=== PATIENT | female | born 1960 | race Caucasian/White ===

== ENCOUNTER 2016-12-13 13:05 | Day surgery (SDC) | payer MEDICARE, BC ==
--- NOTE | 2016-12-14 09:10 | RADIOLOGY REPORT ---
EXAM: ABDOMEN, ONE VIEW HISTORY: KIDNEY STONES. FREQUENT URINARY TRACT INFECTIONS. TECHNIQUE: A single AP supine view of the abdomen was obtained. Comparison: Abdomen one view dated 11/18/12. FINDINGS: The bowel gas pattern is normal. No definite nephrolithiasis. Several round calcifications are again noted scattered within the pelvis, the pattern of which is not significantly changed. These are likely vascular. No new mass or organomegaly. Post cholecystectomy changes are again identified. There is redemonstration of a small focus of sclerosis projecting at the level of the inferior right iliac bone measuring 6 mm. This is stable suggesting a bone island. Surgical chain suture is again noted at the left mid abdominal level. IMPRESSION: 1. NO NEPHROLITHIASIS VISUALIZED. 2. SMALL ROUND CALCIFICATIONS SCATTERED WITHIN THE INFERIOR PELVIS, LIKELY VASCULAR IN ORIGIN. 3. BONE ISLAND WITHIN THE INFERIOR ASPECT OF THE RIGHT ILIAC BONE. 4. STATUS POST CHOLECYSTECTOMY. JOB NUMBER: [id number] MTDD
--- NOTE | 2016-12-14 14:25 | Operative Note ---
DATE OF SURGERY: 12/13/2016 PREOPERATIVE DIAGNOSIS: Recurrent urinary tract infection, urinary urgency and frequency. POSTOPERATIVE DIAGNOSIS: Recurrent urinary tract infection, urinary urgency and frequency. OPERATION: Cystoscopy. Anesthesia: Local. Indication: A 56-year-old female with symptoms of urinary tract infections that have been recurring episodically this past year but urine cultures that have been available for my review have been negative. So far, she has had a renal ultrasound that showed a 5 mm stone in the right upper pole of the kidney. She presents today for cystoscopy to complete her evaluation. PROCEDURE: Preop informed consent was obtained. Antibiotics were given. The patient was brought to the [facility] procedure room, placed supine with the genitalia prepped and draped sterilely in the frog-leg position. Flexible cystoscopy was performed. Urethra appears unremarkable. The bladder was inspected carefully. No bladder or mucosal abnormality was seen. The ureteral orifices had normal appearance and positioning. Each was effluxing clear urine. Pelvic examination revealed well supported bladder and vaginal structures and no evidence of prolapse. The scope was then removed. The procedure was terminated. PLAN: At this point we discussed removing her renal calculus and proceeding with lithotripsy. This could be the source of her recurring infection. However, there is still a possibility that this is related to menopause and if so, we would also need to consider possibility of antibiotic prophylaxis since she cannot tolerate estrogen replacement therapy. We will move ahead with lithotripsy first and follow her symptoms afterwards. CC: MARGIE OCAMPO D.O. ISHAAN
== END 2016-12-13 15:48 | disposition home or self-care (01) ==
LOC: HOP 13:05
PROVIDERS: ATTEND Urology
DX: N39.0 Urinary tract infection, site not specified (principal)
CPT/HCPCS: 74000

== ENCOUNTER 2017-04-21 14:31 | Emergency (ER) | payer MEDICARE, BC ==
--- NOTE | 2017-04-21 14:43 | Emergency Department Record ---
History of Present Illness - General Chief Complaint: Dizziness Stated Complaint: DIZZY AND COLD FEELING IN LEFT ARM Time Seen by Provider: 04/21/17 14:41 Source: Patient Mode of Arrival: Ambulatory Limitations: No limitations - History of Present Illness Initial Comments: The patient is here due to having the sudden onset of dizziness while driving about 20 minutes ago. She states the feeling was like she was off balance and she felt funny in the head and felt like the car was vearing to the R. She was able to drive here with no difficulty. The patient then felt some vague mild L arm pain and then it felt cold. Her symptoms have now pretty much resolved and she not longer is having any pain, cold arm feeling, off balance or any spinning sensation. She does state she feels a little foggy in the head but denies any nausea, blurred vision, weakness, or numbness. The patient is having intermittent double vision but that is chronic for her. MD Complaint: Dizziness Onset/Timin -: Minutes(s) Timing: Sudden onset Description: Lightheadedness, Nausea, Off-balance Associated Symptoms: Denies other symptoms - Mary Coma Scale Eye Response: (4) Open spontaneously Motor Response: (6) Obeys commands Verbal Response: (5) Oriented [place] Total: 15 - Related Data Previous Rx's Medication Instructions Recorded Meclizine HCl [Antivert] 25 mg PO BID #14 tab 04/21/17 Allergies Allergy/AdvReac Type Severity Reaction Status Date / Time NSAIDS (Non-Steroidal AdvReac NAUSEA AND Verified 04/21/17 14:44 Anti-Inflamma VOMITING Travel Screening - Travel/Exposure Within Last 30 Days Have you traveled within the last 30 days?: No - Travel/Exposure Within Last Year Have you traveled outside the [place] in the last year?: No - Additonal Travel Details Have you been exposed to anyone with a communicable illness?: No - Travel Symptoms Symptom Screening: None Review of Systems Constitutional: Denies: Chills, Fever Eyes: Denies: Eye discharge ENT: Denies: Congestion Respiratory: Denies: Cough, Dyspnea Cardiovascular: Denies: Arrhythmia, Chest pain, Dyspnea on exertion Endocrine: Denies: Fatigue Past Medical History - SOCIAL HISTORY Smoking Status: Never smoker Alcohol Use: Rare Drug Use: None - RESPIRATORY Hx Respiratory Disorders: No Hx Bronchitis: Yes - CARDIOVASCULAR Hx Cardio Disorders: Yes Hx Palpitations: Yes - NEURO Hx Neuro Disorders: Yes Hx Headaches: Yes Hx of Migraines: Yes (occass) Comment:: recent hopitalization for diplopia seeing neuro opthamalogist - GI Hx GI Disorders: No Hx Nausea/Vomiting: Yes (occass since gastric bypass) Hx Wt Loss/Wt Gain: Yes (8 lbs due to meds gain) Comment:: polyps - Hx Genitourinary Disorders: No Hx UTI: Yes (chronic) Comment:: post hyst - ENDOCRINE Hx Endocrine Disorders: No Hx Thyroid Disease: Yes (nodules non malignant) - MUSCULOSKELETAL Hx Musculoskeletal Disorders: No Hx Arthritis: Yes (osteoarthritis) Hx Fibromyalgia: Yes - PSYCH Hx Psych Problems: No Hx Anxiety: Yes Hx Depression: Yes Comment:: Bipolar - HEMATOLOGY/ONCOLOGY Hx Hematology/Oncology Disorders: Yes Hx Anemia: Yes Family Medical History Any Significant Family History?: No Hx Cancer: Mother Physical Exam - General General Appearance: Alert, Oriented x3, Cooperative, No acute distress - Head Head exam: Atraumatic, Normocephalic, Normal inspection - Eye Eye exam: Normal appearance, PERRL, EOMI - ENT ENT exam: Normal exam, Mucous membranes moist, Normal external ear exam, Normal orophraynx, TM's normal bilaterally Throat exam: Normal inspection. negative: Tonsillar erythema, Tonsillar exudate - Neck Neck exam: Normal inspection, Full ROM, Other (Neg carotic bruits.). negative: Lymphadenopathy, Meningismus, Tenderness - Respiratory Respiratory exam: Normal lung sounds bilaterally. negative: Respiratory distress - Cardiovascular Cardiovascular Exam: Regular rate, Normal rhythm, Normal heart sounds - GI/Abdominal GI/Abdominal exam: Soft, Normal bowel sounds. negative: Tenderness - Extremities Extremities exam: Normal inspection, Full ROM, Normal capillary refill. negative: Tenderness - Back Back exam: Reports: Normal inspection - Neurological Neurological exam: Alert, Normal gait, Oriented X3, Other (Neg Drift and [place]omberg exams. Her finger to nose testing is normal bilaterally with NO cerebellar signs or abnormalities.). negative: Abnormal gait, Altered, Motor sensory deficit Course Vital Signs 04/21/17 14:35 Temperature 99.0 F Pulse Rate 92 H Respiratory 20 Rate Blood Pressure 142/82 Pulse Ox 97 - Reevaluation(s) Reevaluation #1: The patient is doing much better at this time. She is resting comfortably and is much less dizzy. 04/21/17 15:31 Reevaluation #2: The patient is doing much better at this time. She is presently texting on her phone and feels MUCH better. Her dizziness has basically resolved and she denies any pain or discomfort. She is able to get up and walk, while turning in the room with no dizziness or ataxia. I explained to her that her tests and exam are all WNL's and really do not point to any cause for the dizziness. She is to see her PCP next week and return to the ER if not better or if worse. 04/21/17 16:10 Medical Decision Making - Data Complexity MDM Data: Labs Ordered and/or Reviewed, X-Ray Ordered and/or Reviewed, EKG Ordered and/or Reviewed - Lab Data Result diagrams: 04/21/17 15:05 04/21/17 15:05 - EKG Data -: EKG Interpreted by Me EKG: No Acute Changes - Radiology Data Radiology results: Report reviewed (Head CT: neg.) Disposition Disposition: Discharge Clinical Impression: Dizziness Disposition: Home, Self-Care Condition: (2) Stable Instructions: Dizziness (ED) Additional Instructions: Please take your regular medicines and take the Antivert as directed. Please see your PCP next week for recheck and return to the ER for any return of the dizziness, or any arm or leg numbness, tingling, weakness or any balance issues. Prescriptions: Meclizine HCl [Antivert] 25 mg PO BID #14 tab Forms: Patient Portal Access Time of Disposition: 16:14 Quality - Quality Measures Quality Measures: N/A - Blood Pressure Screening View Details: Yes Does Patient Have Any of the Following: No Blood Pressure Classification: Pre-Hypertensive BP Reading Systolic Measurement: 130 Diastolic Measurement: 86 Screening for High Blood Pressure: < Pre-Hypertensive BP, F/U Documented > [ G8950] Pre-Hypertensive Follow-up Interventions: Referral to alternative/primary care provider.
[2017-04-21] MEDS ORDERED: ACETAMINOPHEN 325 MG TAB PO ONE (14:52)
[2017-04-21] MEDS ORDERED: MECLIZINE 25 MG TABLET PO ONE (14:52)
[2017-04-21 15:17] LABS: BASO % 0.4 % (0-6); EOS % 5.5 % (0-6); GRAN % 68.8 % (47-80); HEMATOCRIT 38.9 % (35.0-47.0); HEMOGLOBIN 11.8 gm/dl (11.6-16.0); LYMPH % 19.5 % (16-45); MEAN CELL VOLUME 90.3 fl (81-97); MEAN CORPUSCULAR HEMOGLOBIN 27.4 pg (27-33); MEAN CORPUSCULAR HGB CONC 30.3 g/dl (32-36); MEAN PLATELET VOLUME 10.3 fl (7.4-10.4); MONO % 5.8 % (0-9); PLATELET COUNT 285 K/uL (130-400); RED BLOOD COUNT 4.31 M/uL (3.80-5.40); RED CELL DISTRIBUTION WIDTH 13.5 % (11.5-14.5); WHITE BLOOD COUNT W/O DIFF 8.1 K/uL (4.2-12.2)
[2017-04-21 15:24] LABS: BLOOD UREA NITROGEN 13 mg/dL (6-20); CREATININE 0.8 mg/dL (0.5-0.9); EST GLOMERULAR FILTRATION RATE > 60 mL/min
[2017-04-21 15:25] LABS: TOTAL PROTEIN 6.7 g/dL (6.6-8.7)
[2017-04-21 15:27] LABS: GLUCOSE,RANDOM 151 mg/dL (74-109)
[2017-04-21 15:29] LABS: ALB/GLOB RATIO 1.6 (1.1-1.8); ALBUMIN 4.1 g/dL (4.0-5.0); ALT/SGPT 71 U/L (<33); AST/SGOT 28 U/L (10.0-35.0)
[2017-04-21 15:30] LABS: ALKALINE PHOSPHATASE 97 U/L (35-104)
[2017-04-21 15:40] LABS: THYROID STIMULATING HORMONE 1.22 uIU/mL (0.270-4.20)
--- NOTE | 2017-04-22 10:55 | CT SCAN REPORT ---
EXAM: CT SCAN HEAD WO CONTRAST HISTORY: ACUTE HEADACHE, DIZZINESS. NOT OTHERWISE SPECIFIED. COMPARISON: Head CT 03/28/16. HAND DOMINANCE: Right. TECHNIQUE: Contiguous axial images from the cerebral convexities through the foramen magnum were obtained without IV contrast. FINDINGS: Brain volume is normal. No acute intracranial hemorrhage, mass effect , or midline shift. No CT evidence of acute infarct. Ventricles, basal cisterns , and sulci are within normal limits. Osseous structures, soft tissues, and paranasal sinuses are unremarkable. IMPRESSION: NORMAL HEAD CT. NO CHANGE. JOB NUMBER: [id number] MTDD
== END 2017-04-21 16:26 | disposition home or self-care (01) ==
LOC: ER 14:31
DX: R42 Dizziness and giddiness (principal); R11.0 Nausea; M79.602 Pain in left arm; R51 Headache; M54.2 Cervicalgia
CPT/HCPCS: 70450; 80053; 84443; 85025; 93005; 93010; 99284

== ENCOUNTER 2018-03-05 12:00 | Observation (INO) | payer BC, MEDICARE ==
[2018-03-05] MEDS ORDERED: ASPIRIN 81 MG CHEWABLE TABLET PO ONE (12:11)
--- NOTE | 2018-03-05 12:17 | Emergency Department Record ---
History of Present Illness - General Chief Complaint: Shortness of breath Stated Complaint: [place]UC[place]LE Time Seen by Provider: 03/05/18 12:02 Source: Patient Mode of Arrival: Ambulatory Limitations: No limitations - History of Present Illness Initial Comments: 57 yo female presents with fatigue, shortness of breath and a burning feeling with breathing. She has had the symptoms for 2 weeks. She notices them with breathing and activity. It hurts to breath at times and with activity in her home. No cough. No fever. She is a non smoker. She does think her mother has a history of heart attack. No history of heart or lung disease. She has bipolar on [place] doing well. She has some leg edema but states that is chronic and unchanged. She feels the symptoms almost all the time over the two weeks. There have been brief periods without. She is more fatigued with normal house activity. MD Complaint: Chest pain (rivera), Shortness of breath Onset/Timin -: Week(s) (14) Severity: Moderate Quality: Burning Consistency: Constant Improves With: Nothing Worsens With: Exertion Known History Of: Other Associated Symptoms: Denies other symptoms Treatments Prior to Arrival: None - Related Data Allergies Allergy/AdvReac Type Severity Reaction Status Date / Time NSAIDS (Non-Steroidal AdvReac NAUSEA AND Verified 03/05/18 12:08 Anti-Inflamma VOMITING Travel Screening - Travel/Exposure Within Last 30 Days Have you traveled within the last 30 days?: No Review of Systems Constitutional: Reports: Malaise, Weakness. Denies: Chills, Fever Eyes: Denies: Eye discharge ENT: Denies: Congestion, Throat pain Cardiovascular: Reports: Chest pain, Dyspnea on exertion, Edema. Denies: Arrhythmia, Palpitations, Syncope Endocrine: Denies: Fatigue Gastrointestinal: Denies: Abdominal pain, Constipation, Diarrhea, Nausea Genitourinary: Denies: Dysuria, Urgency Musculoskeletal: Denies: Arthralgia, Back pain, Myalgia Skin: Denies: Bruising, Change in color, Rash Neurological: Denies: Headache Psychiatric: Denies: Anxiety Hematological/Lymphatic: Denies: Easy bleeding, Easy bruising Past Medical History - SOCIAL HISTORY Smoking Status: Never smoker Alcohol Use: None Drug Use: None - RESPIRATORY Hx Respiratory Disorders: No Hx Bronchitis: Yes - CARDIOVASCULAR Hx Cardio Disorders: Yes Hx Palpitations: Yes - NEURO Hx Neuro Disorders: Yes Hx Headaches: Yes Hx of Migraines: Yes (occass) Comment:: recent hopitalization for diplopia seeing neuro opthamalogist - GI Hx GI Disorders: No Hx Nausea/Vomiting: Yes (occass since gastric bypass) Hx Wt Loss/Wt Gain: Yes (8 lbs due to meds gain) Comment:: polyps - Hx Genitourinary Disorders: No Hx UTI: Yes (chronic) Comment:: post hyst - ENDOCRINE Hx Endocrine Disorders: No Hx Thyroid Disease: Yes (nodules non malignant) - MUSCULOSKELETAL Hx Musculoskeletal Disorders: No Hx Arthritis: Yes (osteoarthritis) Hx Fibromyalgia: Yes - PSYCH Hx Psych Problems: No Hx Anxiety: Yes Hx Depression: Yes Comment:: Bipolar - HEMATOLOGY/ONCOLOGY Hx Hematology/Oncology Disorders: Yes Hx Anemia: Yes Family Medical History Any Significant Family History?: Yes Hx Cancer: Mother Physical Exam - General General Appearance: Alert, Oriented x3, Cooperative, No acute distress Limitations: No limitations - Head Head exam: Atraumatic, Normal inspection - Eye Eye exam: Normal appearance. negative: Conjunctival injection, Scleral icterus - ENT ENT exam: Normal exam Ear exam: Normal external inspection Nasal Exam: Normal inspection Mouth exam: Normal external inspection - Neck Neck exam: Normal inspection, Full ROM. negative: Tenderness - Respiratory Respiratory exam: Normal lung sounds bilaterally. negative: Accessory muscle use, Chest wall tenderness, Decreased breath sounds, Respiratory distress, Rhonchi, Stridor, Wheezes - Cardiovascular Cardiovascular Exam: Regular rate, Normal rhythm, Normal heart sounds - GI/Abdominal GI/Abdominal exam: Soft. negative: Tenderness - Rectal Rectal exam: Deferred - exam: Deferred - Extremities Extremities exam: Normal inspection, Pedal edema (+1 bilateral). negative: Tenderness - Back Back exam: Denies: Tenderness - Neurological Neurological exam: Alert, Oriented X3 - Psychiatric Psychiatric exam: Normal affect, Normal mood - Skin Skin exam: Dry, Intact, Normal color, Warm Course Vital Signs 03/05/18 12:03 Temperature 97.8 F Pulse Rate 120 H Respiratory 100 H Rate Blood Pressure 140/73 Pulse Ox 20 L - Reevaluation(s) Reevaluation #1: EKG #1: 1208 Rate: 111 Rhythm: sinus tach [place]: normal Intervals: normal ST segments: ST elevation anterior leads, no depression Prior: 04/21/17 reviewed. more pronounced changes in V3-V5 [place] [facility] [place] airways operations specialist cardiology given the EKG changes. 03/05/18 12:17 [facility] contacted and reviewing EKG's 03/05/18 12:26 Dr Candelario reviewed the EKG's. He does not recommend label rewinder activation at this time. Cardiology would like to be called back after Troponin is resulted. 03/05/18 12:33 03/05/18 12:36 The CBC and BMP were reviewed. No acute changes. 03/05/18 13:00 EKG #2: 1240 Rate: 97 Rhythm: sinus [place]: normal Intervals: normal ST segments: NS ST elevation, LVH, no depression Prior: minimal interval changes Repeat ECG reviewed with Dr Candelario Given the length of symptoms and elevated D-dimer, chest CTA and ECHO ordered. The patient is very comfortable. HR much improved to 89. 03/05/18 13:14 Normal ESR and CRP 03/05/18 13:50 The CXR and the CTA of the chest are negative. 03/05/18 14:[address] Candelario. The plan is for review of the ECHO and repeat troponin. If negative will admit for further serial troponins. If positive will transfer. Next troponin around 4 pm 03/05/18 14:57 The ECHO was normal without wall motion abnormality or effusion. 03/05/18 15:04 ECHO: Normal LV, EF 55-60%, grade II dyastolic dysfunction, trace tricuspid regurg, normal pulmonary pressures. 03/05/18 16:16 The repeat Troponin is negative MCG PA completed the consult The case will be discussed with Dr Lo for admission and likely stress test tomorrow. Medical Decision Making - Lab Data Result diagrams: 03/05/18 12:15 03/05/18 12:15 Disposition Disposition: Discharge Clinical Impression: Chest pain Qualifiers: Chest pain type: unspecified Qualified Code(s): R07.9 - Chest pain, unspecified Disposition: Still a Patient at [facility] Decision to Admit: Admit from ER Decision to Admit Date: 03/05/18 Condition: (2) Stable Time of Disposition: 14:57 Quality - Quality Measures Quality Measures: N/A - Blood Pressure Screening Does Patient Have Any of the Following: No Blood Pressure Classification: Normal BP Reading Systolic Measurement: 106 Diastolic Measurement: 54 Screening for High Blood Pressure: < Normal BP, F/U Not Required > [G8783] Pre-Hypertensive Follow-up Interventions: Referral to alternative/primary care provider.
[2018-03-05 12:23] LABS: BASO % 0.3 % (0-6); EOS % 3.6 % (0-6); GRAN % 69.3 % (47-80); HEMATOCRIT 36.4 % (35.0-47.0); HEMOGLOBIN 11.2 gm/dl (11.6-16.0); LYMPH % 20.7 % (16-45); MEAN CELL VOLUME 91.2 fl (81-97); MEAN CORPUSCULAR HGB CONC 30.8 g/dl (32-36); MEAN PLATELET VOLUME 10.1 fl (7.4-10.4); MONO % 6.1 % (0-9); PLATELET COUNT 284 K/uL (130-400); RED BLOOD COUNT 3.99 M/uL (3.80-5.40)
[2018-03-05 12:32] LABS: PROTHROMBIN TIME (PATIENT) 9.8 SECONDS (9.5-12.1)
[2018-03-05 12:35] LABS: BLOOD UREA NITROGEN 14 mg/dL (6-20); CREATININE 0.6 mg/dL (0.5-0.9); EST GLOMERULAR FILTRATION RATE > 60 mL/min
[2018-03-05 12:36] LABS: TOTAL PROTEIN 6.1 g/dL (6.6-8.7)
[2018-03-05 12:38] LABS: GLUCOSE,RANDOM 238 mg/dL (74-109)
[2018-03-05 12:40] LABS: ALB/GLOB RATIO 1.4 (1.1-1.8); ALBUMIN 3.6 g/dL (4.0-5.0); ALKALINE PHOSPHATASE 83 U/L (35-104); ALT/SGPT 34 U/L (<33); AST/SGOT 22 U/L (10.0-35.0)
[2018-03-05] MEDS ORDERED: ACETAMINOPHEN 325 MG TAB PO PRN (16:58)
[2018-03-05] MEDS ORDERED: 0.9 % SODIUM CHLORIDE 1000ML 1,000 ML IV PRN (16:58)
--- NOTE | 2018-03-05 20:02 | Cardiology Consult ---
DATE OF CONSULTATION: 03/05/2018 HISTORY OF PRESENT ILLNESS: Ms. Harmon is a very pleasant 57-year-old female with past medical history of bipolar disorder, stage 2 diastolic dysfunction, peripheral edema, migraines, restless leg syndrome, and fibromyalgia. She denies prior history of coronary artery disease, hypertension, hyperlipidemia, CVA/TIA, diabetes mellitus, PE/DVT, and tobacco use. She drinks alcohol only on occasion. She has a family history of coronary artery disease, as her mother and father both had heart attacks in their 60's. She reports a normal stress test about 15 years ago prior to a surgery. No previous echocardiogram. She has never seen a Casualty Claim Adjuster. She presented to [facility] with complaints of chest pain. She first noticed the pain two weeks ago. It was intermittent and aggravated with physical activity. She describes it as a mid sternal pressure with associated shortness of breath. The pain has become more constant, which is why she decided to go to the E.D. Her vital signs have been stable. Her EKG demonstrated new ST elevations, likely J- point elevations, in leads V3 through V5. These were new changes when compared to her prior EKG. The E.D. physician reviewed these findings with Dr. Alvarenga, who did not feel it was acute coronary syndrome. Troponin has been negative x1 and the second is pending. CTA of the chest was negative for PE. Echocardiogram demonstrated preserved LV systolic function with an ejection fraction of 55 to 60%, no wall motion abnormalities, grade 2 diastolic dysfunction, trace TR, and normal pulmonary pressures. She continues to have mild mid sternal chest pressure but is resting comfortably in bed. ALLERGIES: NSAIDS FOR NAUSEA AND VOMITING. MEDICATIONS: Lamotrigine 150 mg b.i.d. Clonazepam 2 mg daily. Hydroxychloroquine Sulfate 200 mg b.i.d. Cope Carbonate 450 mg daily. Hydroxyzine HCL 50 mg b.i.d. Zofran 8 mg t.i.d. Nitrofurantoin 100 mg every other day. Vraylar 3 mg daily. Ipratropium [place] 30 mL spray t.i.d. FAMILY HISTORY: Father MO, mother MO. SOCIAL HISTORY: Denies tobacco use, occasional alcohol use, no routine exercise program. PAST MEDICAL HISTORY: Bipolar disorder, fibromyalgia, restless leg syndrome, peripheral edema, grade 2 diastolic dysfunction, and migraines. REVIEW OF SYSTEMS: CONSTITUTIONAL: No fevers, chills, sweats, lightheadedness, dizziness, syncope. EYE: No recent visual problems. ENMT: No ear pain, nasal congestion, sore throat. RESPIRATORY: Reports shortness of breath. No cough. CARDIOVASCULAR: Reports chest pain. No palpitations, PND, orthopnea, syncope. PERIPHERAL VASCULAR: Chronic peripheral edema, no claudication. GASTROINTESTINAL: No nausea, vomiting, diarrhea. MUSCULOSKELETAL: No back pain, neck pain, joint pain, muscle pain, decreased range of motion. INTEGUMENTARY: No rash, pruritus, abrasions. NEUROLOGIC: Denies numbness, tingling, paresthesias. PSYCHIATRIC: No anxiety, depression. Reports bipolar disorder. PHYSICAL EXAM: VITAL SIGNS: Blood pressure 140/73 mmHg. Temperature 97.8 degrees Fahrenheit. Respiratory rate 20 per minute. PO2 100% on 2 liters supplemental oxygen via nasal canula. Pulse 94 beats per minute. GENERAL: Alert and oriented, well nourished, in no acute distress. HEAD: Normocephalic, atraumatic. ENT: EOMI, PERRL. No scleral icterus, erythema, throat free from erythema and lesions. NECK: Supple, nontender, no carotid bruits, no JVD. RESPIRATORY: Clear to auscultation, nonlabored respiration, no wheezing, rhonchi , rales. CARDIAC: Regular rate and rhythm. No murmurs, rubs, gallops. PERIPHERAL VASCULAR: 1+ peripheral edema bilaterally. No cyanosis, clubbing. Peripheral pulses 2+ and symmetric. ABDOMEN: Soft, nontender, nondistended, normal bowel sounds. SKIN: Skin is warm, dry, and pink. No rashes or lesions. MUSCULOSKELETAL: Normal range of motion of all four extremities. Normal gait. NEUROLOGIC: Awake, alert, and oriented x3. PSYCHIATRIC: Cooperative, appropriate mood and affect. LABS: CBC: White blood cell count 6.0. Hemoglobin is 11.2. Hematocrit 36.4. Platelets 284. Basic metabolic panel: Sodium 143. Potassium 3.7. Chloride 105. CO2 24. BUN 14. Creatinine 0.6. Glucose 238. D-dimer 0.59. proBNP 109.8. CRP 0.30. Troponin negative x1. IMAGING: EKG: Nonspecific ST elevation, not acute coronary syndrome. Chest X-ray: No acute cardiopulmonary process. CTA for PE: Negative. Echocardiogram: Ejection fraction 55 to 60%, no wall motion abnormalities, grade 2 diastolic dysfunction, trace TR, and normal pulmonary pressures. ASSESSMENT AND PLAN: 1. ATYPICAL CHEST PAIN. 2. ABNORMAL EKG. 3. PATIENT IS A 57-YEAR-OLD FEMALE WITH RISK FACTORS FOR CAD INCLUDING ONLY FAMILY HISTORY. SHE DENIES HYPERTENSION, HYPERLIPIDEMIA, DIABETES, AND TOBACCO USE. SHE PRESENTED TO [facility] WITH COMPLAINTS OF CONSTANT MID STERNAL CHEST PRESSURE. THE PAIN STARTED TWO WEEKS AGO AND WAS INTERMITTENT AT FIRST. IT IS EXACERBATED WITH PHYSICAL ACTIVITY. NO ALLEVIATING FACTORS. EKG DEMONSTRATED NEW J-POINT ELEVATIONS IN LEADS V3 THROUGH V5 WHEN COMPARED TO PRIOR EKG. THIS WAS REVIEWED WITH DR. ALVARENGA AND DID APPEAR TO BE ACUTE CORONARY SYNDROME. ECHOCARDIOGRAM DEMONSTRATED PRESERVED LV SYSTOLIC FUNCTION WITH AN EJECTION FRACTION OF 55 TO 60%, GRADE 2 DIASTOLIC DYSFUNCTION, TRACE TR, AND NORMAL PULMONARY PRESSURES. CTA FOR PE WAS NEGATIVE. SHE IS RESTING COMFORTABLY IN BED AT THE MOMENT COMPLAINING OF MINIMAL CHEST PRESSURE. VITAL SIGNS HAVE BEEN STABLE. IF SECOND TROPONIN COMES BACK NEGATIVE, WILL PLAN TO HAVE MEDICINE ADMIT THE PATIENT AND WILL PERFORM A STRESS CARDIOLITE TOMORROW, ON 03/06/2018. IF SECOND TROPONIN COMES BACK POSITIVE, WILL PLAN TO TRANSFER TO [facility] [place] FOR FURTHER CARDIAC EVALUATION. [facility]BER: [id number] [facility]
[2018-03-05] MEDS ORDERED: CLONAZEPAM 1MG TABLET PO SCH (22:00)
[2018-03-05] MEDS ORDERED: HYDROXYCHLOROQUINE SULFATE 200 MG TABLET PO SCH (22:00)
[2018-03-05] MEDS ORDERED: IPRATROPIUM BROMIDE NS SCH (22:00)
[2018-03-05] MEDS ORDERED: HYDROXYZINE PAMOATE 25 MG CAPSULE PO SCH (22:00)
[2018-03-05] MEDS ORDERED: LAMOTRIGINE 100 MG TABLET PO SCH (22:00)
[2018-03-05] MEDS: CARIPRAZINE HCL 3 MG PO SCH (23:04)
[2018-03-05] MEDS: LITHIUM CARBONATE 300 MG PO SCH (23:16)
[2018-03-05] MEDS: LITHOBID PO SCH (23:16)
--- NOTE | 2018-03-06 07:20 | RADIOLOGY REPORT ---
EXAM: CHEST HISTORY: RETROSTERNAL CHEST PAIN. TECHNIQUE: A single frontal view of the chest was obtained. Comparison: Chest radiograph 08/22/12. FINDINGS: The cardiac silhouette is within normal size limits. The pulmonary vasculature is not dilated. No focal pulmonary consolidation. No visible pleural effusion or pneumothorax. Degenerative changes of the thoracic spine. Suture anchors are seen in the region of the right humeral head. IMPRESSION: NO ACUTE CHEST FINDINGS. JOB NUMBER: [id number] MTDD
--- NOTE | 2018-03-06 07:28 | CT ANGIOGRAM REPORT ---
EXAM: CTA OF THE CHEST HISTORY: MIDLINE CHEST PAIN AND BORDERLINE ELEVATED D-DIMER. TECHNIQUE: CT angiogram of the chest was obtained. 70 ml of Omnipaque 350 intravenous contrast agent utilized. Additional maximum intensity projection images were rendered on an independent workstation. Comparison: Chest radiograph 03/05/18. FINDINGS: No pulmonary artery filling defects to suggest embolism. The thoracic aorta has normal course and caliber. No evidence of aneurysm or dissection. No mediastinal lymphadenopathy. No pericardial effusion. Mild dependent atelectasis in both lower lobes, otherwise no focal pulmonary consolidation. No pleural effusion or pneumothorax. Post surgical changes of the stomach. Surgical clips in the gallbladder fossa. No definite acute osseous findings. Multilevel degenerative changes of the thoracic spine. IMPRESSION: NO EVIDENCE OF PULMONARY EMBOLISM OR OTHER ACUTE INTRATHORACIC ABNORMALITY. JOB NUMBER: [id number] [facility]
[2018-03-06] MEDS ORDERED: HYDROXYZINE PAMOATE 25 MG CAPSULE PO PRN ×2 (09:15)
[2018-03-06] MEDS: LAMOTRIGINE 100 MG TABLET PO SCH ×2 (09:57→22:06)
[2018-03-06] MEDS ORDERED: ASPIRIN 325 MG TAB ENTERIC-COATED PO SCH (10:00)
[2018-03-06] MEDS ORDERED: LITHOBID PO SCH (10:00)
[2018-03-06] MEDS ORDERED: CLONAZEPAM 1MG TABLET PO SCH ×2 (10:00→22:00)
[2018-03-06] MEDS ORDERED: LITHIUM CARBONATE 450 MG PO SCH (10:00)
--- NOTE | 2018-03-06 12:51 | History & Physical ---
History of Present Illness - Date of Service Date of Service for History & Physical: 03/06/18 - History of Present Illness Admitting Diagnosis: chest pain History of Present Illness: Jt Harmon is a 58 y.o. female who presented to the ED on 03/05/2018 for worsening fatigue, SOB and a burning feeling while breathing x 2 weeks. Denies cough, fever and is a non-smoker. Reports that she has chest pressure at rest and chest pain with exertion. Family hx of heart attacks. PMHx includes Bipolar d/o, depression, anxiety, IBS with diarrhea, fibromyalgia and visual hallucinations. Pt reports that her psychiatrist in [place] manages her psychiatric medications and her last dose changes occurred right before these symptoms started. Has been taking all medications as prescribed. Troponins negative x 4 [place] Level pending CXR - negative CTA Chest - negative EKG indicates new ST elevation ECHO 03/05/18 = Grade 2 Diastolic dysfunction, EF 55-60% 03/06/2018 Vitals: 126/68, 83, 20, 97% on 2L per NC, 97.9 Pt continues to report chest discomfort 2/10 at rest and chest pain and extreme fatigue with exertion. Reports fatigue with just brushing her teeth. Denies fever or chills. Reports that BLE edema is unchanged from her normal. Reports that bowels are moving normally, no difficulty urinating. Denies nausea. Wondering what next steps are. Travel Screening - Travel/Exposure Within Last 30 Days Have you traveled within the last 30 days?: No - Travel/Exposure Within Last Year Have you traveled outside the [place] in the last year?: No - Additonal Travel Details Have you been exposed to anyone with a communicable illness?: No - Travel Symptoms Symptom Screening: None Review of Systems Reviewed: No additional complaints except as noted below Constitutional: Reports: Malaise, Weakness. Denies: Chills, Fever Eyes: Denies: Eye discharge ENT: Denies: Congestion, Throat pain Cardiovascular: Reports: Chest pain, Dyspnea on exertion, Edema. Denies: Arrhythmia, Palpitations, Syncope Endocrine: Denies: Fatigue Gastrointestinal: Denies: Abdominal pain, Constipation, Diarrhea, Nausea Genitourinary: Denies: Dysuria, Urgency Musculoskeletal: Denies: Arthralgia, Back pain, Myalgia Skin: Denies: Bruising, Change in color, Rash Neurological: Denies: Headache Psychiatric: Denies: Anxiety Hematological/Lymphatic: Denies: Easy bleeding, Easy bruising Past Medical History - SOCIAL HISTORY Smoking Status: Never smoker Alcohol Use: None Drug Use: None - RESPIRATORY Hx Respiratory Disorders: No Hx Bronchitis: Yes - CARDIOVASCULAR Hx Cardio Disorders: Yes Hx Palpitations: Yes - NEURO Hx Neuro Disorders: Yes Hx Headaches: Yes Hx of Migraines: Yes (occass) Comment:: recent hopitalization for diplopia seeing neuro opthamalogist - GI Hx GI Disorders: No Hx Nausea/Vomiting: Yes (occass since gastric bypass) Hx Wt Loss/Wt Gain: Yes (8 lbs due to meds gain) Comment:: polyps - Hx Genitourinary Disorders: No Hx UTI: Yes (chronic) Comment:: post hyst - ENDOCRINE Hx Endocrine Disorders: No Hx Thyroid Disease: Yes (nodules non malignant) - MUSCULOSKELETAL Hx Musculoskeletal Disorders: No Hx Arthritis: Yes (osteoarthritis) Hx Fibromyalgia: Yes - PSYCH Hx Psych Problems: No Hx Anxiety: Yes Hx Depression: Yes Comment:: Bipolar - HEMATOLOGY/ONCOLOGY Hx Hematology/Oncology Disorders: Yes Hx Anemia: Yes Family Medical History Any Significant Family History?: Yes Hx Cancer: Mother H&P Meds/Allergies - Allergies Allergies: Allergies Allergy/AdvReac Type Severity Reaction Status Date / Time NSAIDS (Non-Steroidal AdvReac NAUSEA AND Verified 03/05/18 12:08 Anti-Inflamma VOMITING - Home Medications Home Medications Medication Instructions Recorded Confirmed Last Taken Brainards Carbonate [Brainards 600 mg PO QHS 03/06/18 03/06/18 Unknown Carbonate ER] - Active Medications Active Medications: Current Medications Acetaminophen (Tylenol 325mg) 650 mg PO Q6H PRN PRN Reason: PAIN - MILD(1-4)/FEVER Aspirin (Ecotrin (Ec)) 325 mg PO DAILY [facility] Last Admin: 03/06/18 09:55 Dose: 325 mg Clonazepam (Klonopin) 2 mg PO QHS [facility] Hydroxyzine Pamoate (Vistaril) 25 mg PO BID PRN PRN Reason: ANXIETY Sodium Chloride () 1,000 mls @ 42 mls/hr IV .[id number] PRN PRN Reason: LARGE VOLUME IV Lamotrigine (Lamictal) 150 mg PO BID [facility] Last Admin: 03/06/18 09:57 Dose: 150 mg Non-Formulary Medication (Cariprazine Hcl [Vraylar]) 3 mg PO QHS [facility] Last Admin: 03/05/18 23:04 Dose: 3 mg Patient Own Med: Brain[place] Carbonate 300mg Lithobid 2 each PO QHS [facility] Last Admin: 03/05/18 23:16 Dose: 2 each Patient Own Med: Brain[place] Carbonate 450mg Lithobid 1 each PO DAILY [facility] Last Admin: 03/06/18 09:57 Dose: 1 each Physical Exam - Vital Signs Vital Signs: Vital Signs - Last 24 Hrs Temp Pulse Pulse Pulse Resp BP BP 03/06/18 09:00 107 H 83 20 03/06/18 08:00 97.9 F 83 20 126/68 03/06/18 06:08 03/05/18 21:00 84 18 03/05/18 17:45 107 H 84 18 03/05/18 17:05 97.7 F 84 18 128/69 03/05/18 16:41 91 H 18 106/54 03/05/18 15:33 107 H 18 133/69 03/05/18 13:04 96 H 18 113/71 Pulse Ox 03/06/18 09:00 03/06/18 08:00 97 03/06/18 06:08 98 03/05/18 21:00 03/05/18 17:45 03/05/18 17:05 100 03/05/18 16:41 98 03/05/18 15:33 100 03/05/18 13:04 97 - General General Appearance: Alert, Oriented x3, Cooperative Limitations: No limitations - Head Head exam: Atraumatic, Normal inspection - Eye Eye exam: Normal appearance. negative: Conjunctival injection, Scleral icterus - ENT ENT exam: Normal exam Mouth exam: Normal external inspection - Neck Neck exam: Normal inspection, Full ROM. negative: Tenderness - Respiratory Respiratory exam: Normal lung sounds bilaterally. negative: Accessory muscle use, Chest wall tenderness, Decreased breath sounds, Respiratory distress, Rhonchi, Stridor, Wheezes - Cardiovascular Cardiovascular Exam: Regular rate, Normal rhythm, Normal heart sounds - GI/Abdominal GI/Abdominal exam: Soft. negative: Tenderness - Rectal Rectal exam: Deferred - exam: Deferred - Extremities Extremities exam: Normal inspection, Pedal edema (+1 bilateral). negative: Tenderness - Back Back exam: Denies: Tenderness - Neurological Neurological exam: Alert, Oriented X3 - Psychiatric Psychiatric exam: Flat affect, Normal mood - Skin Skin exam: Dry, Intact, Normal color, Warm Results - Labs Result Diagrams: 03/05/18 12:15 03/05/18 12:15 Labs Last 24 Hours: Laboratory Results - last 24 hr 03/05/18 03/05/18 03/05/18 12:15 12:15 12:15 ESR PT 9.8 INR 1.0 APTT 26.0 D-Dimer 0.59 Sodium 143 Potassium 3.7 Chloride 105 Carbon Dioxide 24.0 Anion Gap 14.0 BUN 14 Creatinine 0.6 Estimated GFR > 60 Random Glucose 238 H Calcium 9.8 Magnesium 1.8 Total Bilirubin 0.30 AST 22 ALT 34 H Alkaline Phosphatase 83 Troponin T < 0.010 C-Reactive Protein NT-Pro-B Natriuret Pep 109.80 Total Protein 6.1 L Albumin 3.6 L Globulin 2.5 Albumin/Globulin Ratio 1.4 03/05/18 03/05/18 03/05/18 12:15 12:15 15:40 ESR 14 PT INR APTT D-Dimer Sodium Potassium Chloride Carbon Dioxide Anion Gap BUN Creatinine Estimated GFR Random Glucose Calcium Magnesium Total Bilirubin AST ALT Alkaline Phosphatase Troponin T < 0.010 C-Reactive Protein 0.30 NT-Pro-B Natriuret Pep Total Protein Albumin Globulin Albumin/Globulin Ratio 03/05/18 03/06/18 22:55 06:32 ESR PT INR APTT D-Dimer Sodium Potassium Chloride Carbon Dioxide Anion Gap BUN Creatinine Estimated GFR Random Glucose Calcium Magnesium Total Bilirubin AST ALT Alkaline Phosphatase Troponin T < 0.010 < 0.010 C-Reactive Protein NT-Pro-B Natriuret Pep Total Protein Albumin Globulin Albumin/Globulin Ratio - Imaging and Cardiology Chest x-ray Status: Report reviewed CT scan - chest Status: Report reviewed VTE H&P Assessment - Risk for VTE Risk for VTE: Yes Risk Level: Low Risk Assessment Date: 03/06/18 Risk Assessment Time: 13:45 VTE Orders Placed or Will Be Placed: Yes VTE Reason for No Prophylaxis: Not Indicated Plan - Detailed Diagnosis and Plan (1) Chest pain Current Visit: Yes Status: Acute Qualifiers: Chest pain type: unspecified Qualified Code(s): R07.9 - Chest pain, unspecified Base Code: R07.9 - CHEST PAIN, UNSPECIFIED Comment: 03/06/2018: -Vital signs stable -Trops negative x 4 -CXR and CTA chest negative -ECHO performed in ED = EF 55-60%, stage 2 diastolic dysfunction -EKG in ED = new ST elevation -Cardiology consulted, requested Lexiscan Cardiolite Stress test -Awaiting Stress Test and [place] Levels (2) Fatigue Current Visit: Yes Status: Acute Base Code: R53.83 - OTHER FATIGUE Comment : 03/06/2018: -Fatigue x 2 weeks, reports that this started after psychiatric medications were adjusted -Brain[place] level pending -Waiting from Stress Test and results -ECHO in ED on 03/05/18 = EF 55-60%, stage 2 diastolic dysfunction -EKG = new ST elevation -BNP 109 (3) Exertional dyspnea Current Visit: Yes Status: Acute Base Code: R06.09 - OTHER FORMS OF DYSPNEA Comment: 03/06/2018: -Increased x 2 weeks, after adjustments made in psychiatric medications -CXR negative -Chest CTA negative -BNP 109 -ECHO in ED 03/05/18 = EF 55-60%, stage 2 diastolic dysfunction -Waiting from Stress Test and Results (4) Full code status Current Visit: Yes Status: Acute Base Code: Z78.9 - OTHER SPECIFIED HEALTH STATUS Comment: 03/06/2018: Pt is a full code this admission (5) DVT prophylaxis Current Visit: Yes Status: Acute Base Code: [id number] - Comment: 03/06/2018: -Nursing to encourage ambulation and frequent position changes
[2018-03-06] MEDS: CARIPRAZINE HCL 3 MG PO SCH (22:09)
[2018-03-06] MEDS: LITHIUM CARBONATE 300 MG PO SCH (22:10)
[2018-03-06] MEDS: LITHOBID PO SCH (22:10)
[2018-03-07 07:10] LABS: BASO % 0.4 % (0-6); GRAN % 60.8 % (47-80); HEMATOCRIT 35.8 % (35.0-47.0); LYMPH % 24.7 % (16-45); MEAN CELL VOLUME 89.7 fl (81-97); MEAN CORPUSCULAR HGB CONC 30.7 g/dl (32-36); MEAN PLATELET VOLUME 10.3 fl (7.4-10.4); MONO % 8.1 % (0-9); PLATELET COUNT 301 K/uL (130-400); RED BLOOD COUNT 3.99 M/uL (3.80-5.40)
[2018-03-07 07:20] LABS: MEAN CORPUSCULAR HEMOGLOBIN 27.5 pg (27-33)
[2018-03-07 07:27] LABS: ALB/GLOB RATIO 1.4 (1.1-1.8); ALBUMIN 3.4 g/dL (4.0-5.0); ALKALINE PHOSPHATASE 75 U/L (35-104); ALT/SGPT 25 U/L (<33); AST/SGOT 18 U/L (10.0-35.0); BLOOD UREA NITROGEN 11 mg/dL (6-20); CREATININE 0.5 mg/dL (0.5-0.9); EST GLOMERULAR FILTRATION RATE > 60 mL/min; GLUCOSE,RANDOM 92 mg/dL (74-109); TOTAL PROTEIN 5.9 g/dL (6.6-8.7)
--- NOTE | 2018-03-07 13:22 | Discharge Summary ---
Providers Discharge Summary Date: 03/07/18 Date of admission: 03/05/18 16:35 Attending physician: REJI ENNIS Primary care physician: REJI ENNIS Consults: Consult Orders 03/05/18 14:56 Consult - Cardiology NOW Consulting Provider: ISAC ZHENG Physician Instructions: Reason For Exam: chest pain Does pt have current airborne mission systems?: Rosie Physical Exam - Vital Signs Vital Signs: Vital Signs - Last 24 Hrs Temp Pulse Pulse Resp BP Pulse Ox 03/07/18 08:00 98.1 F 86 80 12 100 03/07/18 05:54 94 L 03/06/18 23:22 99.3 F 89 16 126/70 98 03/06/18 21:00 89 16 03/06/18 16:00 97.7 F 72 18 107/57 98 - General General Appearance: Alert, Oriented x3, Cooperative Limitations: No limitations - Head Head exam: Atraumatic, Normal inspection - Eye Eye exam: Normal appearance. negative: Conjunctival injection, Scleral icterus - ENT ENT exam: Normal exam - Neck Neck exam: Normal inspection, Full ROM. negative: Tenderness - Respiratory Respiratory exam: Normal lung sounds bilaterally. negative: Accessory muscle use, Chest wall tenderness, Decreased breath sounds, Respiratory distress, Rhonchi, Stridor, Wheezes - Cardiovascular Cardiovascular Exam: Regular rate, Normal rhythm, Normal heart sounds - GI/Abdominal GI/Abdominal exam: Soft. negative: Tenderness - Rectal Rectal exam: Deferred - exam: Deferred - Extremities Extremities exam: Normal inspection, Pedal edema (+1 bilateral). negative: Tenderness - Back Back exam: Denies: Tenderness - Neurological Neurological exam: Alert, Oriented X3 - Psychiatric Psychiatric exam: Flat affect, Normal mood - Skin Skin exam: Dry, Intact, Normal color, Warm Hospitalization - Hospitalization Admission Diagnosis: chest pain - Problem List/Discharge Diagnosis (1) Chest pain Status: Acute Discharge Diagnosis: Chest pain type: unspecified Qualified Code(s): R07.9 - Chest pain, unspecified Base Code: R07.9 - CHEST PAIN, UNSPECIFIED Comment: 03/07/18: -Vital signs stable -Improved chest discomfort -[place] level subtherapeutic at 0.5, pt to f/u with psychiatrist for dose adjustments -1st part of chemical stress test done on 03/06/18, awaiting 2nd portion of test today -Pending cardiology recommendations after stress test completion, pt to be discharged 03/06/2018: -Vital signs stable -Trops negative x 4 -CXR and CTA chest negative -ECHO performed in ED = EF 55-60%, stage 2 diastolic dysfunction -EKG in ED = new ST elevation -Cardiology consulted, requested Lexiscan Cardiolite Stress test -Awaiting Stress Test and [place] Levels (2) Fatigue Status: Acute Base Code: R53.83 - OTHER FATIGUE Comment: 03/07/18: -Fatigue improved, was able to shower this morning but says chest was tight -[place] level subtherapeutic -Awaiting part 2 of stress test -D/c pending cardiology recommendations 03/06/2018: -Fatigue x 2 weeks, reports that this started after psychiatric medications were adjusted -[place] level pending -Waiting from Stress Test and results -ECHO in ED on 03/05/18 = EF 55-60%, stage 2 diastolic dysfunction -EKG = new ST elevation -BNP 109 (3) Exertional dyspnea Status: Acute Base Code: R06.09 - OTHER FORMS OF DYSPNEA Comment: 03/07/18: -Fatigue improved, pt able to shower this a.m. -[place] level sub-therapeutic -D/c pending cardiology recommendation after 2nd portion of stress test 03/06/2018: -Increased x 2 weeks, after adjustments made in psychiatric medications -CXR negative -Chest CTA negative -BNP 109 -ECHO in ED 03/05/18 = EF 55-60%, stage 2 diastolic dysfunction -Waiting from Stress Test and Results (4) Full code status Status: Acute Base Code: Z78.9 - OTHER SPECIFIED HEALTH STATUS Comment: 03/06: Pt is a full code this admission (5) DVT prophylaxis Status: Acute Base Code: [id number] - Comment: 03/06/2018: -Nursing to encourage ambulation and frequent position changes - Hospitalization Course Disposition: Home, Self-Care Hospital Course: Jt Harmon is a 58 y.o. female who presented to the ED on 03/05/2018 for worsening fatigue, SOB and a burning feeling while breathing x 2 weeks. Denies cough, fever and is a non-smoker. Reports that she has chest pressure at rest and chest pain with exertion. Family hx of heart attacks. PMHx includes Bipolar d/o, depression, anxiety, IBS with diarrhea, fibromyalgia and visual hallucinations. Pt reports that her psychiatrist in [place] manages her psychiatric medications and her last dose changes occurred right before these symptoms started. Has been taking all medications as prescribed. Troponins negative x 4 [place] Level pending CXR - negative CTA Chest - negative EKG indicates new ST elevation ECHO 03/05/18 = Grade 2 Diastolic dysfunction, EF 55-60% 03/06/2018 Vitals: 126/68, 83, 20, 97% on 2L per NC, 97.9 Pt continues to report chest discomfort 2/10 at rest and chest pain and extreme fatigue with exertion. Reports fatigue with just brushing her teeth. Denies fever or chills. Reports that BLE edema is unchanged from her normal. Reports that bowels are moving normally, no difficulty urinating. Denies nausea. Wondering what next steps are. Procedures: Imaging and X-Rays 03/05/18 12:07 CHEST 1 VIEW [RAD] Stat 03/05/18 12:57 CHEST CTA w contrast [CTA] Stat Cardiology Procedures 03/05/18 12:07 Career Services Director NOW EKG NOW 03/05/18 12:37 EKG NOW 03/05/18 13:00 Echo W/CF & Cardiac Doppler NOW 03/05/18 16:58 Career Services Director .Continuous EKG QDX2@0600 03/06/18 10:37 Stress Test [Cardiolite MPI w/chemical stre] NOW Abnormal Labs: Abnormal Lab Results 03/05/18 03/05/18 03/05/18 Range/Units 12:15 12:15 12:15 Hgb 11.2 L (11.6-16.0) gm/dl MCHC 30.8 L (32-36) g/dl Random Glucose 238 H (74-109) mg/dL Calcium (8.6-10.0) mg/dL ALT 34 H (<33) U/L Total Protein 6.1 L (6.6-8.7) g/dL Albumin 3.6 L (4.0-5.0) g/dL [place] <0.1 L (0.5-1.2) mmol/L 03/07/18 03/07/18 Range/Units 06:19 06:19 Hgb 11.0 L (11.6-16.0) gm/dl MCHC 30.7 L (32-36) g/dl Random Glucose (74-109) mg/dL Calcium 10.1 H (8.6-10.0) mg/dL ALT (<33) U/L Total Protein 5.9 L (6.6-8.7) g/dL Albumin 3.4 L (4.0-5.0) g/dL [place] (0.5-1.2) mmol/L Condition at Discharge: (2) Stable VTE Discharge VTE Reason For No Overlap Therapy: Not Indicated Discharge Medications - Discharge Medications Home Medications: Ambulatory Orders Clonazepam [Klonopin] 1 - 2 mg PO QHS 10/05/13 [Last Taken 04/20/17] Lamotrigine [Lamictal] 150 mg PO BID 10/05/13 [Last Taken 04/21/17] [place] Carbonate [[place] Carbonate ER] 450 mg PO DAILY 01/16/15 [Last Taken ] Cariprazine HCl [Vraylar] 3 mg PO QHS cap 09/06/17 [Last Taken Unknown] Hydroxyzine HCl 50 mg PO BID PRN 30 Days #60 tab 09/06/17 [Last Taken Unknown] Hyoscyamine Sulfate 0.125 mg PO Q4H PRN 30 Days #100 tab 09/06/17 [Last Taken Unknown] Nitrofurantoin Macrocrystal [Nitrofurantoin] 100 mg PO QOD #45 cap 09/06/17 [ Last Taken Unknown] Ondansetron HCl 8 mg PO TID PRN #20 tab 09/06/17 [Last Taken Unknown] [place] Carbonate [[place] Carbonate ER] 600 mg PO QHS 03/06/18 [Last Taken Unknown] Acetaminophen [Tylenol 325Mg] 650 mg PO Q6H PRN tablet 03/07/18 [Last Taken Unknown] Discharge Plan - Discharge Instructions Activity at Discharge: Increase Activity as Tolerated Diet at Discharge: Advance to Usual Diet Instructions: Chest Pain (DC) Additional Instructions: continue previous medications Follow up with Wally next week Contact psychiatrist to discuss low [place] level 2 Activity: Increase Activity as Tolerated 2 Diet: Advance to Usual Diet 2 Consults: [] 2 Follow Up: [] 2 ) 2 Additional: [] Quality Measures - Quality Measures Quality Measures: Documentation of Current Medications in Medical Record, Screening for High Blood Pressure and F/U Documented - Current Medications Quality Measure: Measure #130: Documentation of Current Medications Documentation of Current Medications: <Current Medications Documented/Reviewed> [G8427] - Blood Pressure Screening Quality Measure: Screening for High Blood Pressure and Follow-Up Documented Does Patient Have Any of the Following: No Blood Pressure Classification: Normal BP Reading Systolic Measurement: 106 Diastolic Measurement: 54 Screening for High Blood Pressure: < Normal BP, F/U Not Required > [G8783] - Elder Abuse Suspicion Index EASI Reference Information: Chau SAAVEDRA, Donnie C, Kanu Tenorio, Giulia Galloway.Development and validation of a tool to assist physicians identification of elder abuse: The Elder Abuse Suspicion Index (EASI ). Journal of Elder Abuse and Neglect, 2008; 20 (3): 276-300.
== END 2018-03-07 18:49 | disposition home or self-care (01) ==
LOC: ER 12:00 → MEDSURG 16:35
PROVIDERS: ADMIT Internal Medicine; ATTEND Internal Medicine
DX: R07.9 Chest pain, unspecified (principal); R53.83 Other fatigue; R06.09 Other forms of dyspnea; R06.02 Shortness of breath; D64.9 Anemia, unspecified; F31.9 Bipolar disorder, unspecified; M19.90 Unspecified osteoarthritis, unspecified site; M79.7 Fibromyalgia
CPT/HCPCS: 71045; 71046; 71275; 78452; 80053; 83735; 83880; 84484; 85025; 85379; 85610; 85651; 85730; 86140; 90686; 93005; 93010; 93017; 93306; 94760; 99217; 99220; 99285; A9500; J2785

== ENCOUNTER 2018-04-20 23:22 | Emergency (ER) | payer MEDICARE, BC ==
[2018-04-20 23:36] LABS: URINE APPEARANCE CLEAR; URINE BILIRUBIN NEGATIVE (NEGATIVE); URINE BLOOD SMALL (NEGATIVE); URINE COLOR YELLOW; URINE GLUCOSE (UA) NEGATIVE (NEGATIVE); URINE KETONE TRACE (NEGATIVE); URINE LEUKOCYTE ESTERASE MODERATE (NEGATIVE); URINE NITRITE NEGATIVE (NEGATIVE); URINE PROTEIN NEGATIVE (NEGATIVE); URINE UROBILINOGEN 0.2 E.U./dL (0.20 - 1.00)
[2018-04-20 23:38] LABS: URINE BACTERIA 1+; URINE EPITHELIAL CELLS 0 - 2 (FEW); URINE RBC 0 - 2 (NONE SEEN); URINE WBC 16 - 20 (0-2/hpf)
--- NOTE | 2018-04-20 23:38 | Emergency Department Record ---
History of Present Illness - General Chief complaint: Female Urogenital Problem Stated complaint: BLADDER INFECTION Time Seen by Provider: 04/20/18 23:30 Source: Patient Mode of Arrival: Ambulatory Limitations: No limitations - History of Present Illness Initial comments: 58 yo female presents to ED for suprapubic discomfort and burning with urination that began this evening. Patient reports numerous previous episodes with similar symptoms related to UTI. Patient reports that she takes Macrobid every other day for frequent UTIs prescribed by her urologist, ran out 3 weeks ago. Patient denies nausea, vomiting, fevers, or flank pain symptoms. MD Complaint: Dysuria Onset/Timin -: Days(s) Severity: Moderate Quality: Burning Consistency: Constant Improves with: None Worsens with: None Associated Symptoms: Denies other symptoms - Related Data Sexually active: No Previous Rx's Medication Instructions Recorded Acetaminophen [Tylenol 325Mg] 650 mg PO Q6H PRN tablet 03/07/18 Ciprofloxacin HCl [Cipro] 250 mg PO Q12HR #5 tablet 04/20/18 Phenazopyridine HCl [Pyridium] 200 mg PO TID #5 tab 04/20/18 Allergies Allergy/AdvReac Type Severity Reaction Status Date / Time NSAIDS (Non-Steroidal AdvReac NAUSEA AND Unverified 04/20/18 23:32 Anti-Inflamma VOMITING Review of Systems Constitutional: Denies: Chills, Fever, Malaise, Night sweats Eyes: Denies: Eye discharge, Eye pain ENT: Denies: Congestion, Ear pain, Epistaxis Respiratory: Denies: Cough, Dyspnea Cardiovascular: Denies: Chest pain, Dyspnea on exertion Endocrine: Denies: Fatigue, Heat or cold intolerance Gastrointestinal: Denies: Abdominal pain, Nausea, Vomiting Genitourinary: Reports: Dysuria. Denies: Incontinence, Retention Musculoskeletal: Denies: Arthralgia, Back pain Skin: Denies: Bruising, Change in color Neurological: Denies: Abnormal gait, Confusion, Headache, Seizure Psychiatric: Denies: Anxiety Hematological/Lymphatic: Denies: Anemia, Blood Clots Past Medical History - SOCIAL HISTORY Smoking Status: Never smoker Drug Use: None - RESPIRATORY Hx Respiratory Disorders: No Hx Bronchitis: Yes - CARDIOVASCULAR Hx Cardio Disorders: Yes Hx Palpitations: Yes - NEURO Hx Neuro Disorders: Yes Hx Headaches: Yes Hx of Migraines: Yes (occass) Comment:: recent hopitalization for diplopia seeing neuro opthamalogist - GI Hx GI Disorders: No Hx Nausea/Vomiting: Yes (occass since gastric bypass) Hx Wt Loss/Wt Gain: Yes (8 lbs due to meds gain) Comment:: polyps - Hx Genitourinary Disorders: No Hx UTI: Yes (chronic) Comment:: post hyst - ENDOCRINE Hx Endocrine Disorders: No Hx Thyroid Disease: Yes (nodules non malignant) - MUSCULOSKELETAL Hx Musculoskeletal Disorders: No Hx Arthritis: Yes (osteoarthritis) Hx Fibromyalgia: Yes - PSYCH Hx Psych Problems: No Hx Anxiety: Yes Hx Depression: Yes Comment:: Bipolar - HEMATOLOGY/ONCOLOGY Hx Hematology/Oncology Disorders: Yes Hx Anemia: Yes Family Medical History Hx Cancer: Mother Physical Exam - General General Appearance: Alert, Oriented x3, Cooperative Limitations: No limitations - Head Head exam: Atraumatic, Normocephalic, Normal inspection Head exam detail: negative: Abrasion, Contusion, Ryan's sign, General tenderness, Hematoma, Laceration - Eye Eye exam: Normal appearance. negative: Conjunctival injection, Periorbital swelling, Periorbital tenderness, Scleral icterus - ENT Ear exam: negative: Auricular hematoma, Auricular trauma Nasal Exam: negative: Discharge, Dried blood, Foreign body Mouth exam: negative: Drooling, Laceration, Muffled voice, Tongue elevation - Neck Neck exam: Normal inspection. negative: Meningismus, Tenderness - Respiratory Respiratory exam: Normal lung sounds bilaterally. negative: Rales, Respiratory distress, Rhonchi, Stridor - Cardiovascular Cardiovascular Exam: Regular rate, Normal rhythm, Normal heart sounds - GI/Abdominal GI/Abdominal exam: Soft. negative: Rebound, Rigid, Tenderness - Rectal Rectal exam: Deferred - exam: Deferred - Extremities Extremities exam: Normal inspection. negative: Calf tenderness, Pedal edema, Tenderness - Back Back exam: Denies: CVA tenderness (R), CVA tenderness (L) - Neurological Neurological exam: Alert, Normal gait, Oriented X3 - Psychiatric Psychiatric exam: Normal affect, Normal mood - Skin Skin exam: Normal color. negative: Abrasion Type of lesion: negative: abrasion Course - Reevaluation(s) Reevaluation #1: 04/20/18 23:42 UA reviewed: 0-2 RBCs 16-20 WBCs 0-2 Epithelial cells 1+ Bacteria History and UA results appear c/w cystitis, will treat with Cipro per patient request. Disposition Disposition: Discharge Clinical Impression: Cystitis Disposition: Home, Self-Care Condition: (2) Stable Instructions: Urinary Tract Infection in Children (ED) Additional Instructions: Return to ED if your symptoms worsen or if you have any concerns. Cipro as directed. Follow-up with your urologist in 3-5 days as directed. Prescriptions: Ciprofloxacin HCl [Cipro] 250 mg PO Q12HR #5 tablet Phenazopyridine HCl [Pyridium] 200 mg PO TID #5 tab Forms: Patient Portal Access Time of Disposition: 23:48 Quality - Quality Measures Quality Measures: N/A - Blood Pressure Screening Does Patient Have Any of the Following: No Blood Pressure Classification: Pre-Hypertensive BP Reading Systolic Measurement: 129 Diastolic Measurement: 82 Screening for High Blood Pressure: < Pre-Hypertensive BP, F/U Documented > [ [id number]] Pre-Hypertensive Follow-up Interventions: Referral to alternative/primary care provider.
[2018-04-20] MEDS ORDERED: CIPROFLOXACIN HCL 250 MG TABLET PO ONE (23:48)
[2018-04-20] MEDS ORDERED: PHENAZOPYRIDINE HCL 95 MG TABLET PO ONE (23:48)
== END 2018-04-20 23:57 | disposition home or self-care (01) ==
LOC: ER 23:22
DX: N30.91 Cystitis, unspecified with hematuria (principal); B96.89 Other specified bacterial agents as the cause of diseases classified elsewhere
CPT/HCPCS: 81001; 99282

== ENCOUNTER 2019-06-21 08:03 | Day surgery (SDC) | payer MEDICARE ==
[2019-06-21] MEDS ORDERED: PROPOFOL 10 MG/ML VIAL IV ONE (08:04)
[2019-06-21] MEDS ORDERED: LIDOCAINE 2% MDV (20MG/ML) 20ML VIAL IV ONE (08:04)
--- NOTE | 2019-06-25 06:01 | Operative Note ---
SURGEON: Liss Patel MD OPERATION: COLONOSCOPY. INDICATIONS: This is a 59-year-old female with history of colon polyps who presented for surveillance colonoscopy. POSTOPERATIVE DIAGNOSES: 1. A 6 mm ascending colon polyp that was removed by cold snare. 2. A 6 mm sigmoid colon polyp that was removed by cold snare. ANESTHESIA: Sedation is per Anesthesia. Pulse oximetry was monitored throughout the procedure to maintain O2 saturation of 90% or greater. Supplemental oxygen was administered via nasal cannula. Cardiac and vital signs were monitored throughout the duration of the procedure, and they were stable. The procedure of colonoscopy and risks and alternatives of the procedure, including the risk of bleeding and perforation, among others, were explained to the patient who voiced understanding and agreed to have the procedure done. Physical examination was performed, and the patient was found stable for sedation. PROCEDURE: The patient was placed in the left lateral position. Sedation was initiated. A digital rectal exam was performed and showed some mild external hemorrhoids with no palpable rectal masses. An Olympus PCF-180AL colonoscope was then inserted into the rectum under direct visualization. It was advanced to the cecum without difficulty. The ileocecal valve and appendiceal orifice were identified and photographed. The colonic mucosa was carefully examined upon introduction of the colonoscope. In the sigmoid colon was a 6 mm sessile polyp that was noted and was removed by cold snare. In the ascending colon was another 6 mm polyp that was removed by cold snare. There were no other lesions noted. The bowel preparation was fair. The colonoscope was then withdrawn while carefully examining the colonic mucosal surfaces. No other lesions were noted. In the rectum, retroflexion was performed and grade 1 internal hemorrhoids were noted. The colonoscope was then withdrawn and the procedure was terminated. The patient tolerated the procedure well without any immediate complications. The patient remained with stable vital signs and was transferred to the recovery room. RECOMMENDATIONS: 1. The patient should be on a high-fiber diet. 2. The patient is to have a repeat colonoscopy in 3 or 5 years depending on the histology of the polyps. Thank you for allowing me to participate in the care of your patient. ISHAAN
== END 2019-06-21 10:25 | disposition home or self-care (01) ==
LOC: HOP 08:03
PROVIDERS: ATTEND Internal Medicine Gastroenterology
DX: Z12.11 Encounter for screening for malignant neoplasm of colon (principal); Z86.010 Personal history of colon polyps; R00.2 Palpitations; F31.9 Bipolar disorder, unspecified; D12.2 Benign neoplasm of ascending colon; D12.5 Benign neoplasm of sigmoid colon